=== PATIENT | male | born 1985 ===

== ENCOUNTER 2018-06-19 09:09 | Emergency (ER) | payer OTHER ==
[2018-06-19 09:52] VITALS: BMI 25.4
[2018-06-19 09:57] VITALS: BP 126/81; PULSE 71; RESP 18; TEMP 98.4; O2SAT 98
[2018-06-19] MEDS ORDERED: Tmp-Smz 800 mg-160 mg DS Tab PO STA (10:16)
[2018-06-19] MEDS ORDERED: Tetanus/Diphtheria Toxoids 0.5 ml Syringe IM ONE ×2 (10:16→10:30)
[2018-06-19] MEDS ORDERED: Tmp-Smz 800 mg-160 mg DS Tab ONE (10:28)
--- NOTE | 2018-06-19 10:33 | C.PDOC ---
History Of Present Illness 33 year old male presents to the ED for evaluation after he sustained a laceration above his right eyebrow at around 1900 yesterday. Patient states he was taking out the trash when a piece of metal cut him. Patient is not UTD with Tetanus immunization. He denies any other injuries, headache, vision change, LOC. Time Seen by Provider: 06/19/18 10:04 Chief Complaint (Nursing): Abnormal Skin Integrity History Per: Patient History/Exam Limitations: no limitations Onset/Duration Of Symptoms: Hrs Current Symptoms Are (Timing): Still Present Location Of Injury: Right: Face (eyebrow ) Quality Of Symptoms: Painful Additional History Per: Patient Past Medical History Reviewed: Historical Data, Nursing Documentation, Vital Signs Vital Signs: Last Vital Signs Temp 98.4 F 06/19/18 09:56 Pulse 71 06/19/18 09:56 Resp 18 06/19/18 09:56 BP 126/81 06/19/18 09:56 Pulse Ox 98 06/19/18 09:56 - Medical History PMH: No Chronic Diseases Surgical History: No Surg Hx Family History: States: Unknown Family Hx - Social History Hx Alcohol Use: Yes Hx Substance Use: No - Immunization History Hx Tetanus Toxoid Vaccination: No Hx Influenza Vaccination: No Hx Pneumococcal Vaccination: No Review Of Systems Eyes: Negative for: Vision Change Skin: Positive for: Lesions (laceration above right eyebrow ) Neurological: Negative for: Headache, Other (LOC ) Physical Exam - Physical Exam Appears: Non-toxic, No Acute Distress Skin: Normal Color, Warm, Dry Head: Tenderness (immediately above right eyebrow, around laceration site ), Laceration (4-5cm, stellate laceration immediately above right eyebrow with mild swelling and yellow granulation tissue noted. no discharge noted ) Eye(s): bilateral: Normal Inspection, PERRL, EOMI Oral Mucosa: Moist Neck: Supple Chest: Symmetrical, No Deformity, No Tenderness Cardiovascular: Rhythm Regular, No Murmur Respiratory: Normal Breath Sounds, No Rales, No Rhonchi, No Wheezing Extremity: Normal ROM, Capillary Refill (less than 2 seconds ) Neurological/Psych: Oriented x3, Normal Speech, Normal Cognition ED Course And Treatment O2 Sat by Pulse Oximetry: 98 (on RA) Pulse Ox Interpretation: Normal Progress Note: Tetanus IM, Bactrim PO, and Keflex PO given. Area covered with steri strips. Patient is resting comfortably, showing no signs of distress and is stable for discharge. Patient advised to return in two days for wound check. Laceration - Laceration Repair above right eyebrow Wound Length (In cm): 4-5 Description Of Wound: Stellate Wound Cleansed With: Sterile Saline Wound Examination: Irrigated With Saline, No FB With Wound Exploration, No Tendon Injury With Wound Exploration Wound Closure: Steri Strips Wound Complexity: Simple Disposition Counseled Patient/Family Regarding: Diagnosis, Need For Followup, Rx Given - Disposition Referrals: [facility] at [facility] [Outside] Disposition: HOME/ ROUTINE Disposition Time: 10:45 Condition: STABLE Additional Instructions: RETURN TO EMERGENCY ROOM IN 48 HOURS FOR WOUND CHECK USE ANTIBIOTICS UNTIL FINISHED RETURN TO EMERGENCY ROOM IF SYMPTOMS WORSEN, SUCH REDNESS, SWELLING, PAIN, FEVER, DISCHARGE, ETC VUELVA A LA ALYSON DE EMERGENCIA EN 48 HORAS PARA EL CHEQUE DE HERIDA UTILIZAR ANTIBIOTICOS HASTA TERMINAR VUELVA A LA ALYSON DE EMERGENCIA SI LOS SNTOMAS SE ALIMENTAN, TUSHAR ENFERMEDADES, Hinchazn, DOLOR, FIEBRE, DESCARGA, ETC Prescriptions: Cephalexin [Keflex] 500 mg PO BID #14 capsule Ibuprofen [Motrin Tab] 600 mg PO Q6 PRN #30 tab PRN Reason: fever/pain Sulfamethoxazole/Trimethoprim [Bactrim DS 800 mg-160 mg] 1 tab PO BID #14 tab Instructions: Wound Care (DC) Forms: [facility] (Welsh) Print Language: ENGLISH - Clinical Impression Clinical Impression: Forehead laceration - Scribe Statement The provider has reviewed the documentation as recorded by the Scribe (Anne Marie Asher) Provider Attestation: All medical record entries made by the Scribe were at my direction and personally dictated by me. I have reviewed the chart and agree that the record accurately reflects my personal performance of the history, physical exam, me dical decision making, and the department course for this patient. I have also personally directed, reviewed, and agree with the discharge instructions and disposition.
== END 2018-06-19 11:21 | disposition home or self-care (01) ==
LOC: C.ER 09:09
DX: S01.81XA Laceration without foreign body of other part of head, initial encounter (principal); W45.8XXA Other foreign body or object entering through skin, initial encounter